=== PATIENT | male | born 1980 | race Caucasian/White ===

== ENCOUNTER 2017-04-16 21:22 | Emergency (ER) | payer MEDICAID | END 2017-04-16 23:33 | disposition home or self-care (01) | LOC: D.ER 21:22 | DX: J32.9 Chronic sinusitis, unspecified (principal); J30.9 Allergic rhinitis, unspecified; G44.209 Tension-type headache, unspecified, not intractable; K21.9 Gastro-esophageal reflux disease without esophagitis; R09.82 Postnasal drip; J34.89 Other specified disorders of nose and nasal sinuses; F17.200 Nicotine dependence, unspecified, uncomplicated ==

== ENCOUNTER 2017-05-21 12:31 | Emergency (ER) | payer MEDICAID | END 2017-05-21 15:02 | disposition home or self-care (01) | LOC: D.ER 12:31 | DX: J01.90 Acute sinusitis, unspecified (principal); J20.9 Acute bronchitis, unspecified; K21.9 Gastro-esophageal reflux disease without esophagitis; F17.200 Nicotine dependence, unspecified, uncomplicated ==

== ENCOUNTER 2017-07-31 17:57 | Emergency (ER) | payer MEDICAID | END 2017-07-31 19:49 | disposition home or self-care (01) | LOC: D.ER 17:57 | DX: M54.12 Radiculopathy, cervical region (principal); M25.521 Pain in right elbow; K21.9 Gastro-esophageal reflux disease without esophagitis ==

== ENCOUNTER → 2017-10-05 11:45 | Outpatient (CLI) | payer MEDICAID | END | disposition home or self-care (01) | LOC: D.RAD 09:30 → D.US 10:00 → D.NM 10:30 → D.RAD 11:45 | DX: R19.7 Diarrhea, unspecified (principal); R11.2 Nausea with vomiting, unspecified; R10.9 Unspecified abdominal pain ==

== ENCOUNTER → 2017-10-08 10:50 | Outpatient (CLI) | payer MEDICAID | END | disposition home or self-care (01) | LOC: D.NM 10:50 | DX: R19.7 Diarrhea, unspecified (principal); R11.2 Nausea with vomiting, unspecified; R10.9 Unspecified abdominal pain ==

== ENCOUNTER 2018-04-12 18:56 | Emergency (ER) | payer MEDICAID ==
[~2018-04-12] VITALS: Ht 172.7 cm; Wt 76.4 kg
[2018-04-12 19:01] VITALS: Ht 172.7 cm; Wt 76.4 kg
[2018-04-12] MEDS ORDERED: TYLENOL W/CODEI1 TAB PO (21:34)
[2018-04-12] MEDS ORDERED: AMOXICILLIN500 M1 PO (21:34)
[2018-04-12 22:39] VITALS: BP 142/84
== END 2018-04-12 22:39 | disposition home or self-care (01) ==
LOC: D.ER 18:56
DX: K04.7 Periapical abscess without sinus (principal); K08.89 Other specified disorders of teeth and supporting structures; F17.200 Nicotine dependence, unspecified, uncomplicated

== ENCOUNTER 2019-05-13 16:37 | Emergency (ER) | payer MEDICAID ==
[~2019-05-13] VITALS: Ht 172.7 cm; Wt 76.0 kg
[~2019-05-13 16:37] MED LIST: AMOXICILLIN500 M1 PO; TYLENOL W/CODEI1 TAB PO
[2019-05-13 16:40] VITALS: BP 143/109; Ht 172.7 cm; Wt 76.0 kg
[2019-05-13 16:59] LABS: BASOPHILS 0.4 % (0-2); HEMATOCRIT 42.6 % (42.0-54.0); HEMOGLOBIN 14.9 g/dL (13.5-17.5); IMMATURE GRANULOCYTES 0.2 % (0-5); MCV 91.6 fL (80.0-100.0); MEAN PLATELET VOLUME 9.1 fL (7.4-10.4); MONOCYTES 7.3 % (2-11); NEUTROPHILS 64.1 % (40-80); PLATELET COUNT 273 10x3/uL (130-400); RBC 4.65 10x6/uL (4.20-6.10); RDW 13.2 % (11.5-14.5); WBC 9.8 10x3/uL (4.8-10.8)
[2019-05-13 17:43] LABS: ALBUMIN 3.4 g/dL (3.4-5.0); ALKALINE PHOSPHATASE 66 U/L (46-116); ALT (SGPT) 22 U/L (10-68); AMYLASE - SERUM 115 U/L (25-115); BILIRUBIN - TOTAL 0.46 mg/dL (0.2-1.3); CALC OSMOLALITY 277 mosm/kg (275-300); CALCIUM 9.7 mg/dL (8.5-10.1); CARBON DIOXIDE 29.4 mmol/L (21.0-32.0); CHLORIDE - SERUM 105 mmol/L (98-107); CREATININE - SERUM 1.1 mg/dL (0.6-1.3); GLUCOSE 105 mg/dL (74-106); LIPASE 286 U/L (73-393); POTASSIUM - SERUM 4.1 mmol/L (3.5-5.1); PROTEIN - SERUM 7.6 g/dL (6.4-8.2); SODIUM 140 mmol/L (136-145); TROPONIN-I < 0.017 ng/mL (0.000-0.060); UREA NITROGEN 9 mg/dL (7-18); eGFR NON AFRICAN AMERICAN 78 mL/min (90-120)
[2019-05-13] MEDS ORDERED: OMEPRAZOLE40 MG PO (17:56)
== END 2019-05-13 18:06 | disposition home or self-care (01) ==
LOC: D.ER 16:37
PROVIDERS: Family Medicine
DX: K21.9 Gastro-esophageal reflux disease without esophagitis (principal)

== ENCOUNTER 2019-09-10 00:21 | Emergency (ER) | payer SELFPAY ==
[~2019-09-10] VITALS: Ht 172.7 cm; Wt 79.6 kg
[~2019-09-10 00:21] MED LIST changes: +OMEPRAZOLE40 MG PO
[2019-09-10 00:29] VITALS: Ht 172.7 cm; Wt 79.6 kg
[2019-09-10 00:54] LABS: BASOPHILS 0.2 % (0-2); EOSINOPHILS 0.7 % (0-7); HEMATOCRIT 45.2 % (42.0-54.0); HEMOGLOBIN 15.4 g/dL (13.5-17.5); IMMATURE GRANULOCYTES 0.7 % (0-5); LYMPHOCYTES 21.5 % (15-50); MCH 31.8 pg (26.0-34.0); MCHC 34.1 g/dL (31.0-37.0); MCV 93.4 fL (80.0-100.0); MEAN PLATELET VOLUME 8.8 fL (7.4-10.4); MONOCYTES 0.2 % (2-11); NEUTROPHILS 76.7 % (40-80); RBC 4.84 10x6/uL (4.20-6.10); RDW 12.7 % (11.5-14.5); WBC 4.3 10x3/uL (4.8-10.8)
[2019-09-10 00:55] LABS: PLATELET COUNT 198 10x3/uL (130-400)
[2019-09-10 00:56] LABS: CALC OSMOLALITY 285 mosm/kg (275-300); CALCIUM 8.4 mg/dL (8.5-10.1); CHLORIDE - SERUM 105 mmol/L (98-107); CREATININE - SERUM 1.2 mg/dL (0.6-1.3); GLUCOSE 102 mg/dL (74-106); POTASSIUM - SERUM 3.7 mmol/L (3.5-5.1); SODIUM 143 mmol/L (136-145); UREA NITROGEN 15 mg/dL (7-18); eGFR NON AFRICAN AMERICAN 71 mL/min (90-120)
[2019-09-10 00:59] LABS: APTT 24.2 SECONDS (22.8-39.4); INR 1.08 (0.85-1.17); PROTIME 13.5 SECONDS (11.6-15.0)
[2019-09-10 01:00] LABS: D-DIMER-QUANTITATIVE 2.82 ug/mLFEU (0.20-0.54)
[2019-09-10 01:13] LABS: ALBUMIN 3.4 g/dL (3.4-5.0); ALKALINE PHOSPHATASE 84 U/L (46-116); ALT (SGPT) 27 U/L (10-68); CREATINE KINASE 139 UL (21-232); LIPASE 165 U/L (73-393); MAGNESIUM - SERUM 1.5 mg/dL (1.8-2.4); PROTEIN - SERUM 7.4 g/dL (6.4-8.2)
[2019-09-10 01:14] LABS: TROPONIN-I < 0.017 ng/mL (0.000-0.060)
[2019-09-10 01:43] LABS: APPEARANCE CLEAR (CLEAR); BILIRUBIN NEGATIVE (NEGATIVE); COLOR YELLOW (YELLOW); GLUCOSE NEGATIVE (NEGATIVE); KETONE NEGATIVE (NEGATIVE); NITRITE NEGATIVE (NEGATIVE); PROTEIN NEGATIVE (NEGATIVE); SPECIFIC GRAVITY 1.015 (1.005-1.020); UROBILINOGEN NORMAL (NORMAL)
[2019-09-10 01:46] LABS: UDS - AMPHET POSITIVE QUAL (NEGATIVE); UDS - BARB NEGATIVE QUAL (NEGATIVE); UDS - BENZO NEGATIVE QUAL (NEGATIVE); UDS - COCAINE NEGATIVE QUAL (NEGATIVE); UDS - OPIATE NEGATIVE QUAL (NEGATIVE); UDS - PCP NEGATIVE QUAL (NEGATIVE); UDS - THC POSITIVE QUAL (NEGATIVE)
[2019-09-10] MEDS ORDERED: ZOFRAN ODT4 MG/UDTAB PO (03:07)
[2019-09-10 03:48] VITALS: BP 101/57
== END 2019-09-10 03:42 | disposition home or self-care (01) ==
LOC: D.ER 00:21
PROVIDERS: Family Medicine
DX: B34.9 Viral infection, unspecified (principal); R07.9 Chest pain, unspecified; E83.42 Hypomagnesemia

== ENCOUNTER 2020-05-21 12:54 | Emergency (ER) | payer MEDICAID ==
[~2020-05-21] VITALS: Ht 172.7 cm; Wt 77.3 kg
[~2020-05-21 12:54] MED LIST changes: +ZOFRAN ODT4 MG/UDTAB PO
[2020-05-21 13:10] VITALS: Ht 172.7 cm; Wt 77.3 kg
[2020-05-21 13:41] LABS: BASOPHILS 0.5 % (0-2); EOSINOPHILS 2.6 % (0-7); HEMATOCRIT 44.2 % (42.0-54.0); HEMOGLOBIN 14.7 g/dL (13.5-17.5); IMMATURE GRANULOCYTES 0.2 % (0-5); LYMPHOCYTES 19.9 % (15-50); MCH 31.3 pg (26.0-34.0); MCHC 33.3 g/dL (31.0-37.0); MCV 94.2 fL (80.0-100.0); MEAN PLATELET VOLUME 8.9 fL (7.4-10.4); MONOCYTES 8.1 % (2-11); NEUTROPHILS 68.7 % (40-80); RBC 4.69 10x6/uL (4.20-6.10); RDW 12.5 % (11.5-14.5); WBC 10.1 10x3/uL (4.8-10.8)
[2020-05-21 13:43] LABS: PLATELET COUNT 248 10x3/uL (130-400)
[2020-05-21 13:47] LABS: CALC OSMOLALITY 277 mosm/kg (275-300); CALCIUM 8.4 mg/dL (8.5-10.1); CARBON DIOXIDE 26.9 mmol/L (21.0-32.0); CHLORIDE - SERUM 106 mmol/L (98-107); CREATININE - SERUM 1.1 mg/dL (0.6-1.3); GLUCOSE 108 mg/dL (74-106); POTASSIUM - SERUM 3.5 mmol/L (3.5-5.1); SODIUM 140 mmol/L (136-145); UREA NITROGEN 8 mg/dL (7-18); eGFR NON AFRICAN AMERICAN 78 mL/min (90-120)
[2020-05-21 13:52] LABS: ALBUMIN 3.1 g/dL (3.4-5.0); ALKALINE PHOSPHATASE 61 U/L (30-120); ALT (SGPT) 23 U/L (10-68); PROTEIN - SERUM 6.5 g/dL (6.4-8.2)
[2020-05-21] MEDS ORDERED: NAPROSYN500 MG PO (14:43)
[2020-05-21] MEDS ORDERED: ZOFRAN ODT4 MG/UDTAB PO (14:43)
[2020-05-21 16:06] VITALS: BP 129/80
== END 2020-05-21 16:05 | disposition home or self-care (01) ==
LOC: D.ER 12:54
PROVIDERS: Emergency Medicine
DX: R51 Headache (principal); R11.0 Nausea; K21.9 Gastro-esophageal reflux disease without esophagitis; F17.219 Nicotine dependence, cigarettes, with unspecified nicotine-induced disorders